=== PATIENT | female | born 1975 | race Caucasian/White ===

== ENCOUNTER 2018-11-19 05:17 | Emergency (ER) | payer OTHER ==
[~2018-11-19] VITALS: Ht 175.3 cm; Wt 56.7 kg
[~2018-11-19 05:17] MED LIST: BUPR1TAB2 SL
--- NOTE | 2018-11-19 06:08 | NUR ---
MORELIA C/O BACK PAIN, HAS APPOINTMENT WITH [facility] WEDNESDAY FOR REEVAL FOR SPINAL FUSION. PT AOX4 RR EVEN AND UNLABORED. NO SOB NOTED. NO NVD AT THIS TIME. DR. BUSCH AT BEDSIDE FOR EVAL.
--- NOTE | 2018-11-19 06:24 | NUR ---
PT REFUSED IM [facility], DR. BUSCH MADE AWARE
[2018-11-19] MEDS ORDERED: DIAZEPAM 5 MG TABLET ONE (06:27)
[2018-11-19] MEDS ORDERED: ACETAMINOPHEN 325 MG TABLET ONE (06:27)
[2018-11-19] MEDS ORDERED: KETOROLAC TROMETHAMINE INJ 30 MG/ML VIAL IM ONE (06:30)
[2018-11-19] MEDS ORDERED: ACETAMINOPHEN 325 MG TABLET PO ONE (06:30)
[2018-11-19] MEDS ORDERED: DIAZEPAM 10 MG TABLET PO ONE (06:30)
[2018-11-19 07:07] VITALS: BP 142/68
== END 2018-11-19 07:10 | disposition home or self-care (01) ==
LOC: ER 05:25
DX: G89.29 Other chronic pain (principal); M54.5 Low back pain; Z98.890 Other specified postprocedural states; Z60.2 Problems related to living alone